=== PATIENT | female | born 1980 | race Caucasian/White ===

== ENCOUNTER → 2016-09-26 | Outpatient (CLI) | payer BC ==
[~2016-09-26] MED LIST: AMPH20CA3 PO; CZR25 PO; MEDR5TAB PO; SERT-234 PO
== END ==
LOC: C.PAPS 10:36
PROVIDERS: ATTEND Obstetrics & Gynecology
DX: Z01.419 Encounter for gynecological examination (general) (routine) without abnormal findings (principal)

== ENCOUNTER 2016-11-30 06:07 | Emergency (ER) | payer BC ==
[~2016-11-30] VITALS: Ht 162.6 cm; Wt 111.4 kg
[~2016-11-30 06:07] MED LIST changes: -CZR25 PO
[2016-11-30 06:10] VITALS: TEMP 36.7; Ht 162.6 cm; Wt 111.4 kg
[2016-11-30] MEDS ORDERED: ACETAMINOPHEN 500 MG TAB PO STA (06:45)
[2016-11-30] MEDS ORDERED: IBUPROFEN 600 MG TAB PO STA (06:45)
[2016-11-30 06:53] VITALS: BP 150/94; PULSE 80; O2SAT 96
[2016-11-30] MEDS ORDERED: CZR25 PO (06:54)
--- NOTE | 2016-12-01 04:05 | EMERGENCY ROOM VISIT NOTE ---
History First contact with patient: 06:13 Chief Complaint: EAR PAIN Stated Complaint: RIGHT EAR PAIN History of Present Illness The patient is a 36 year old female who presents to the Emergency Room with complaints of right ear pain for the past 2-3 days. She states that her symptoms worsen significantly over the past 3 hours and she was not able to sleep. The patient has had some sinus congestion the past few days with very mild sore throat. She has not had fever or chills. She is not taking anything [id number] for her symptoms. She rates her total discomfort an 8/10. She does not have known exposure to disease. No chest pain, chest tightness, or shortness of breath. Review of Systems More than 10 systems were reviewed and otherwise negative with the exception of history of present illness. Past Medical/Surgical History No pertinent chronic medical disease Family History No pertinent family history Social History Smoking Status: Current Every Day Smoker Marital Status: single Current/Historical Medications Scheduled Amphetamine-Dextroamphetamine 20MG (Adderall Xr 20MG), 20 MG PO DAILY Losartan Potassium (Losartan Potassium), 25 MG PO DAILY Sertraline (Zoloft), 200 MG PO HS Physical Exam Vital Signs Date Time Temp Pulse Resp B/P (MAP) Pulse Ox O2 Delivery O2 Flow Rate FiO2 11/30/16 06:53 80 16 150/94 96 11/30/16 06:10 36.7 80 16 150/94 96 Room Air Pain Rating (0-10): 8.0 Physical Exam VITALS: Vitals are noted on the nurse's note and reviewed by myself. Vital signs stable. GENERAL: Well-developed, well-nourished, white female, who is in no acute distress and resting comfortably. Patient is cooperative with the examination. HEAD: Normocephalic atraumatic. EARS: External ear normal. External auditory canals clear, tympanic membranes pearly burgess without erythema or effusion bilaterally. EYES: Pupils equal round and reactive to light and accommodation. Conjunctivae without injection, sclerae without icterus. Extraocular movements intact. NOSE: Patent, turbinates without inflammation or discharge. MOUTH: Mucous membranes moist. Tonsils are not enlarged. Pharynx with erythema and no exudate. Uvula midline. Airway patent. NECK: Supple without nuchal rigidity. No lymphadenopathy. No thyromegaly. Cervical spine is nontender. HEART: Regular rate and rhythm without murmurs gallops or rubs. LUNGS: Clear to auscultation bilaterally without wheezes, rales or rhonchi. No retractions or accessory muscle use. Medical Decision & Procedures Medications Administered Medications (Trade) Dose Ordered Sig/Ralph Route Start Time Stop Time Status Last Admin Dose Admin Acetaminophen (Tylenol Tab) 1,000 mg NOW STAT PO 11/30/16 06:45 11/30/16 06:46 DC 11/30/16 06:51 1,000 MG Ibuprofen (Motrin Tab) 600 mg NOW STAT PO 11/30/16 06:45 11/30/16 06:46 DC 11/30/16 06:51 600 MG ED Course Physical exam and history were performed. Nursing notes, EMR, and Medication List were personally reviewed. Patient appears to have right ear pain for the past few hours that kept her awake. She states that she is allergic to hydrocodone but is able take Tylenol and Advil. She was provided this here in the department. On examination she does not have significant findings other than some erythema of her throat. A rapid strep was performed and was negative with culture pending. Overall I suspect a viral or allergic etiology for her symptoms at this point. The patient is a good candidate for [id number] Sudafed and Afrin. She should follow with her primary care physician if symptoms persist. She was certainly invited back to the ER with any new, worsening, or concerning symptoms. The patient voiced understanding and rated her discomfort an 8/10 at the time of departure. The chart was completed utilizing [employer] Speech Voice Recognition Software. Grammatical errors, random word insertions, pronoun errors, and incomplete sentences are an occasional consequence of this system due to software limitations, ambient noise, and hardware issues. Any formal questions or concerns about the content, text, or information contained within the body of this dictation should be directly addressed to the provider for clarification. . Medical Decision Differential diagnosis includes, but is not limited to: Sinusitis, pharyngitis, otitis, mastoiditis, viral etiology, seasonal allergies, and others Medication Reconcilliation Current Medication List: was personally reviewed by me Impression Primary Impression: Pain in right ear Departure Information Dispostion Home / Self-Care Condition GOOD Forms HOME CARE DOCUMENTATION FORM, IMPORTANT VISIT INFORMATION Patient Instructions My [facility] Additional Instructions You were seen and evaluated today on an emergency basis only. This is not a substitute for, or an effort to provide, complete comprehensive medical care. It is not possible to recognize and treat all injuries or illnesses in a single emergency department visit. For this reason it is recommended that you followup with your primary care physician in the next 2-3 days for recheck of your condition. For baseline pain relief you may alternate ibuprofen and acetaminophen every 4 hours for pain control. Take 600 mg ibuprofen (Advil) and then 4 hours later take 1000 mg acetaminophen (Tylenol). Do not take more than 3000 mg acetaminophen in a single day. Consider [id number]-[id number] Sudafed and Afrin for the next 2-3 days. These are available [id number] at her pharmacy. You are welcome to return to the emergency department anytime with new, worsening, or concerning symptoms.
== END 2016-11-30 06:54 | disposition home or self-care (01) ==
LOC: C.EDB 06:08 → C.EDA 06:54
DX: H92.01 Otalgia, right ear (principal); F17.200 Nicotine dependence, unspecified, uncomplicated

== ENCOUNTER → 2016-12-02 | Outpatient (CLI) | payer BC ==
[~2016-12-02] MED LIST changes: +CZR25 PO; -MEDR5TAB PO
[2016-12-02 16:37] LABS: BASO % 0.3 %; BASO ABS # 0.02 K/uL (0-0.2); COMPLETE YES; EOS % 1.9 %; HEMATOCRIT 41.2 % (37-47); IG% 0.3 %; LYMPH % 20.8 %; LYMPH ABS # 1.66 K/uL (1.2-3.4); MEAN CELL VOLUME 88.2 fL (80-100); MEAN CORPUSCULAR HEMOGLOBIN 29.8 pg (25-34); MEAN CORPUSCULAR HGB CONC 33.7 g/dl (32-36); NEUT % 70.7 %; PLATELET COUNT 227 K/uL (130-400); RED BLOOD COUNT 4.67 M/uL (4.2-5.4); WHITE BLOOD COUNT 7.99 K/uL (4.8-10.8)
[2016-12-02 17:03] LABS: ALT/SGPT 15 U/L (12-78); AST/SGOT 9 U/L (15-37); BLOOD UREA NITROGEN 11 mg/dl (7-18); BUN/CREATININE RATIO 19.1 (10-20); CALCIUM 8.8 mg/dl (8.5-10.1); CARBON DIOXIDE 25 mmol/L (21-32); CHLORIDE 108 mmol/L (98-107); CREATININE 0.56 mg/dl (0.60-1.20); GLUCOSE 87 mg/dl (70-99); SODIUM 139 mmol/L (136-145)
[2016-12-02 17:06] LABS: ALB/GLOB RATIO 0.9 (0.9-2); ALKALINE PHOSPHATASE 92 U/L (45-117)
== END | disposition home or self-care (01) ==
LOC: C.LAB1850 15:29
PROVIDERS: ATTEND Nurse Practitioner Family
DX: E55.9 Vitamin D deficiency, unspecified (principal); H93.19 Tinnitus, unspecified ear